=== PATIENT | male | born 1990 | race African-American/Black ===

== ENCOUNTER 2017-01-03 20:53 | Inpatient (IN) | payer SELFPAY ==
[~2017-01-03] VITALS: Ht 167.6 cm; Wt 68.0 kg
[~2017-01-03 20:53] MED LIST: OXYC-128 PO
--- NOTE | 2017-01-03 21:35 | NUR ---
PT C/O CYST X 3 YEARS THAT HAS FLARED UP IN THE PAST COUPLE OF DAYS. PT AOX4 RR EVEN AND UNLABORED. NO SOB NOTED. NAD NOTED. NO NVD AT THIS TIME. PT NOT DIAPHORETIC. PT GOWNED AND PLACED ON MONITOR WAITING FOR MD MCKEON.
[2017-01-03 21:51] LABS: BASOPHILS # (AUTO) 0.3 /CMM (0.0-0.2); BASOPHILS % (AUTO) 2.2 % (0.0-2.0); EOSINOPHILS % (AUTO) 0.3 % (0.0-6.0); HEMATOCRIT 36 % (39-51); HEMOGLOBIN 11.8 g/dL (13.5-17.5); LYMPHOCYTES # (AUTO) 2.1 /CMM (0.8-4.8); LYMPHOCYTES % (AUTO) 14.5 % (20.0-44.0); MEAN CORPUSCULAR HEMOGLOBIN 30 PG (26.0-33.0); MEAN CORPUSCULAR HGB CONC 33 g/dl (31.0-36.0); MEAN CORPUSCULAR VOLUME 92 fL (80-96); MONOCYTES # (AUTO) 1.2 /CMM (0.1-1.30); MONOCYTES % (AUTO) 8.1 % (2.0-12.0); NEUTROPHILS # (AUTO) 10.9 /CMM (1.8-8.9); NEUTROPHILS % (AUTO) 74.9 % (43.0-81.0); PLATELET COUNT (AUTO) 333 /CMM (150-450); RDW COEFFICIENT OF VARIATION 13.9 (11.5-15.0); WHITE BLOOD COUNT (AUTO) 14.5 K/uL (4.3-11.0)
[2017-01-03] MEDS ORDERED: ACETAMINOPHEN 325 MG TABLET ONE (21:58)
[2017-01-03] MEDS ORDERED: IV NS 0.9% 1,000 ML ONE (21:58)
[2017-01-03] MEDS ORDERED: IV SET PRIMARY PUMP SET 1 EA INFUS.SET MC ONE ×2 (21:58→22:24)
[2017-01-03] MEDS ORDERED: ACETAMINOPHEN 325 MG TABLET PO ONE (22:00)
[2017-01-03] MEDS ORDERED: IV NS 0.9% 1,000 ML BAG IV ONE (22:00)
--- NOTE | 2017-01-03 22:07 | NUR ---
DR. MORRIS AT BEDSIDE FOR EVAL.
[2017-01-03 22:13] LABS: CALCIUM, SERUM 9.1 mg/dL (8.5-10.1); POTASSIUM 3.9 mmol/L (3.5-5.1)
[2017-01-03] MEDS ORDERED: MORPHINE SULFATE INJ 2 MG/ML DISP.SYRIN ONE (22:16)
[2017-01-03] MEDS ORDERED: MORPHINE SULFATE INJ 4 MG/ML DISP.SYRIN ONE (22:16)
[2017-01-03] MEDS ORDERED: VANCOMYCIN 1 GM VIAL ONE (22:24)
[2017-01-03 22:26] LABS: INR 1.02 (0.87-1.13); PROTHROMBIN TIME 10.9 SECS (9.5-12.7)
[2017-01-03 22:28] LABS: ALBUMIN 3.4 g/dL (3.4-5.0); BILIRUBIN,DIRECT 0.1 mg/dL (0.0-0.2); BILIRUBIN,TOTAL 0.3 mg/dL (0.2-1.0); TOTAL PROTEIN, SERUM 8.4 g/dL (6.4-8.2)
[2017-01-03] MEDS ORDERED: VANCOMYCIN 1 GM in IV D5W 250 ML IV ONE (22:30)
[2017-01-03] MEDS ORDERED: MORPHINE SULFATE INJ 2 MG/ML DISP.SYRIN IV ONE (22:30)
--- NOTE | 2017-01-03 22:41 | NUR ---
URINE COLLECTED. CALLED LAB FOR ENTRY LEVEL.
[2017-01-03 23:09] LABS: APPEARANCE,URINE SL CLOUDY (CLEAR); BILIRUBIN,URINE NEGATIVE (NEGATIVE); BLOOD, URINE NEGATIVE Ery/uL (NEGATIVE); COLOR,URINE DARK YELLO (YELLOW); KETONES,URINE NEGATIVE (NEGATIVE); LEUKOCYTE ESTERASE ,URINE NEGATIVE (NEGATIVE); NITRITE, URINE NEGATIVE (NEGATIVE); PROTEIN,URINE TRACE mg/dl (NEGATIVE); UGLUCOSE NEGATIVE (NEGATIVE); UROBILINOGEN,URINE 0.2 EU/dL (0.2)
[2017-01-03 23:16] LABS: BACTERIA,URINE None seen /HPF (None Seen); RBC,URINE NONE SEEN /HPF (0-2); SQUAMOUS EPITHELIAL CELL,UR Rare /HPF (None Seen); URINE AMORPHOUS URATE Many /HPF (None Seen); WBC,URINE NONE SEEN /HPF (0-3)
[2017-01-03 23:17] LABS: MUCUS,URINE Few /LPF (None Seen)
[2017-01-03] MEDS ORDERED: IOHEXOL-300 100 ML VIAL IV ONE (23:35)
[2017-01-03] MEDS ORDERED: IV NS 0.9% 250 ML IV ONE (23:35)
[2017-01-04] MEDS ORDERED: IV NS 0.9% 1,000 ML IV PRN (00:17)
--- NOTE | 2017-01-04 00:18 | NUR ---
PT TO CT.
--- NOTE | 2017-01-04 00:21 | NUR ---
PT RETURNED FROM CT.
[2017-01-04] MEDS ORDERED: HYDROCODONE/APAP 5/325MG 1 EACH TABLET PO PRN (00:30)
[2017-01-04] MEDS ORDERED: MAGNESIUM HYDROXIDE 30 ML UDC PO PRN (00:30)
[2017-01-04] MEDS ORDERED: Z GUARD REMEDY 2 OZ OINT TP PRN (00:30)
[2017-01-04] MEDS ORDERED: ACETAMINOPHEN 325 MG TABLET PO PRN (00:30)
[2017-01-04] MEDS ORDERED: CEFTRIAXONE 1 G in IV D5W 50 ML IV SCH (00:30)
[2017-01-04] MEDS: PANTOPRAZOLE 40 MG TABLET.DR PO SCH ×2 (00:30→07:30)
[2017-01-04] MEDS ORDERED: MAG HYDROX/AL HYDROX/SIMETH 30 ML UDC PO PRN (00:30)
[2017-01-04] MEDS ORDERED: ONDANSETRON HCL/PF 4 MG/2 ML VIAL IVP PRN (00:30)
[2017-01-04] MEDS ORDERED: ZOLPIDEM TARTRATE 5 MG TABLET PO PRN (00:30)
--- NOTE | 2017-01-04 00:31 | NUR ---
REPORT GIVEN TO DONALD THOMSON FOR KRIS.
[2017-01-04] MEDS ORDERED: IV SET PRIMARY 1 EA INFUS.SET MC ONE (01:08)
[2017-01-04] MEDS ORDERED: IV NS 0.9% 1,000 ML ONE ×2 (01:08→01:52)
[2017-01-04] MEDS ORDERED: IV NS 0.9% 1,000 ML BAG IV ONE (01:30)
[2017-01-04] MEDS ORDERED: CEFTRIAXONE 1 G VIAL ONE (01:42)
[2017-01-04] MEDS ORDERED: IV D5W 50 ML IV ONE (01:43)
[2017-01-04] MEDS ORDERED: SECONDARY IV SET 1 EA INFUS.SET MC ONE (01:43)
[2017-01-04 01:45] VITALS: BP 93/49
[2017-01-04] MEDS ORDERED: IV SET PRIMARY PUMP SET 1 EA INFUS.SET MC ONE (01:52)
--- NOTE | 2017-01-04 01:54 | NUR ---
PT TRANSFERED TO MS BED 206
--- NOTE | 2017-01-04 03:10 | NUR ---
MS ADMITTING RN NOTES RECEIVED PATIENT VIA [facility] PROTOCOL AT 01/04/2015 0145. ALERT AND ORIENTED X 4. IN STABLE CONDITION NO S/S OF DISTRESS NOTED. VERBALLY RESPONSIVE WITH NO C/O PAIN OR DISCOMFORTS VOICED. IV SITE INTACT W/ NO S/S OF INFILTRATION NOTED. CALL LIGHT WITHIN REACH. BED AT LOW POSITION AND LOCKED FOR SAFETY. WILL CONTINUE TO MONITOR ACCORDINGLY.HEAD TO TOE ASSESSMENT SKIN IS INTACT, KEPT CLEAN AND DRY.
--- NOTE | 2017-01-04 03:17 | NUR ---
MS RN NOTES MEDS DUE AT 0030 PROTONIX NOT GIVEN PATIENT REFUSED MED OFFERED 3 TIMES DESPITE RISKS AND BENEFITS PATIENT STILL REFUSED. MD MADE AWARE.
[2017-01-04] MEDS ORDERED: HYDROMORPHONE 1 MG/1 ML DISP.SYRIN ONE (03:37)
[2017-01-04] MEDS: HYDROMORPHONE INJ 2 MG/ML DISP.SYRIN IV PRN ×2 (03:43→07:52)
--- NOTE | 2017-01-04 06:49 | NUR ---
MS RN CLOSING NOTES PATIENT COMFORTABLY IN BED ASLEEP AND EASILY AWAKEN, HEAD OF BED ELEVATED FOR BETTER LUNG EXPANSION AND BETTER CIRCULATION, TOLERATING ROOM AIR, SP02 99% R.A ALERT AND VERBALLY X 4 NO S/S OF DISTRESS, IV SITE INTACT W/ NO S/S OF INFILTRATION NOTED. RESPIRATIONS EVEN UNLABORED BREATH SOUNDS. APICAL PULSE REGULAR; GOOD SKIN CARE PROVIDED. PATIENT IN STABLE CONDITION WITH NO SOB NO S/S OF DISTRESS NO NAUSEA AND VOMITING NO HEADACHE NO PAIN, NO CHEST PAIN SAFETY ENVIRONMENT PROVIDED. FREE OF CLUTTERS, SAFE HAZARD FREE ENVIRONMENT. NEEDS ATTENDED AND ANTICIPATED, NURSING CARE RENDERED, KEPT CLEAN AND DRY AND COMFORTABLE. ALL DUE MEDS WAS GIVEN. CALL LIGHT IN REACH, BED LOWERED AND LOCKED, SR X2 FOR SAFETY AND WILL ENDORSE CONTINUE PLAN OF CARE. ON ATB WITH NO A/R NOTED.
--- NOTE | 2017-01-04 07:27 | NUR ---
MS RN OPENING RECEIVED PATIENT A/OX4 SLEEPING AWAKE TO NAME AND LIGHT TOUCH. PATIENT STATES PAIN CONTROLLED WITH PRN MEDICATIONS AND NON PHARM MEASURES. PATIENT STATES NO NEEDS AT THIS TIME AND APPEARS STABLE. CALL LIGHT IN REACH, BED LOWERED AND LOCKED, RAILS UPX3 FOR SAFETY AND WILL ROUND Q2H OR LESS PER NEEDS.
--- NOTE | 2017-01-04 07:50 | NUR ---
MS RN NOTES PATIENT MORE AWAKE AND STATING SEVERE PAIN AND ASKING FOR DILAUDID. PATIENT STATES HE WANTS TO GO TODAY. NOTIFIED ONCE I AM MADE AWARE WHO THE DR IS I WILL RELAY THE MESSAGE FOR HIM.
[2017-01-04 08:00] VITALS: BP 107/56
[2017-01-04] MEDS ORDERED: FEE PK DOSING 1 MIN EA MC ONE (08:11)
--- NOTE | 2017-01-04 08:58 | NUR ---
MS RN NOTES PATIENT WANTING TO SIGN AMA. PATIENT AGREEABLE TO WAIT UNTIL I FIND OUT WHO MD IS. CALLING MD NOW TO SEE IF WE CAN DC PATIENT. MESSAGE LEFT
[2017-01-04] MEDS ORDERED: VANCOMYCIN 1 GM in IV D5W 250 ML IV SCH (09:00)
--- NOTE | 2017-01-04 09:32 | NUR ---
MS RN AMA MD [place] AWARE PATIENT LEAVING AMA. PATIENT SIGNED OFF AMA PAPER AND BELONGINGS LIST. PATIENT EDUCATED ON REPERCUSSIONS OF LEAVING AMA; UP TO . COPY PROVIDED OF AMA FORM. EDUCATED PATIENT ON S/S INFECTION, RECEIVED PHARMACY INFORMATION FOR MD TO CALL RX FOR PATIENT. PATIENT STATES UNDERSTANDING. IV REMOVED PRESSURE AND DRESSING APPLIED NO BLEEDING. PATIENT ASSISTED TO TAXI WITH ANIMAL HUSBANDRY PROFESSOR VICTORIA NO COMPLICATIONS OR CHANGES. PATIENT LEFT IN STABLE CONDITION.
--- NOTE | 2017-01-04 09:48 | NUR ---
Unique Id: [id number]
--- NOTE | 2017-01-04 16:48 | NUR ---
MS RN NOTES PER MD CALLED IN RX FOR KEFLEX 500MG PO Q12 FOR 7 DAYS NO REFILL TO PATIENT PROVIDED PHARMACY [facility] [phone]
== END 2017-01-04 09:30 | disposition left against medical advice (07) | DRG 872 ==
LOC: ER 20:53 → MEDSG2 23:49
PROVIDERS: ADMIT Internal Medicine; ATTEND Internal Medicine
DX: A41.9 Sepsis, unspecified organism (principal); K61.1 Rectal abscess
CPT/HCPCS: 36415; 72193-TC; 80048-TC; 80076-TC; 81000-TC; 83605-TC; 85025-TC; 85730-TC; 87040-TC; 87081-TC; A4606; A6253; J0696; J1170; J2270; J3370; J7030; J7050; J7060; Q9967; Z7610